=== PATIENT | male | born 1990 | race Caucasian/White ===

== ENCOUNTER 2018-12-31 17:10 | Inpatient (IN) ==
[2018-12-31] MEDS ORDERED: cefTRIAXone SODIUM 2,000 MG/70 ML BAG IV STA (18:30)
[2018-12-31 18:46] LABS: Basophils # (auto) 0.05 K/uL (0-0.2); Basophils % (auto) 0.6 %; Eosinophils # (auto) 0.09 K/uL (0-0.5); Eosinophils % (auto) 1.2 %; Immature Granulocytes # (auto) 0.03 K/uL (0.00-0.02); Immature Granulocytes % (auto) 0.4 %; Lymphocytes # (auto) 2.16 K/uL (1.2-3.4); Mean Corpuscular Hgb Conc 34.9 g/dL (32-36); Mean Corpuscular Volume 88.3 fL (80-100); Mean Platelet Volume 11.5 fL (7.4-10.4); Monocytes # (auto) 1.09 K/uL (0.11-0.59); Monocytes % (auto) 14.1 %; Neutrophils % (auto) 55.7 %; Platelet Count 188 K/uL (130-400); RDW Coefficient of Variation 13.8 % (11.5-14.5); RDW Standard Deviation 44.8 fL (36.4-46.3); Red Blood Count 4.87 M/uL (4.7-6.1); White Blood Count 7.72 K/uL (4.8-10.8)
[2018-12-31 19:02] LABS: Albumin Level 4.2 gm/dl (3.4-5.0); Calcium 8.9 mg/dl (8.5-10.1); Creatinine Clr Calc Pharmacy 143.8 ml/min; Est GFR (African American) 102.7; Est GFR (Non-African American) 88.6; Potassium 3.9 mmol/L (3.5-5.1)
[2018-12-31 19:05] LABS: Bilirubin,Total 0.6 mg/dl (0.2-1); Globulin 4.1 gm/dl (2.5-4.0); Total Protein 8.3 gm/dl (6.4-8.2)
--- NOTE | 2018-12-31 19:18 | XRay Report ---
LEFT FIRST TOE 3 VIEWS CLINICAL HISTORY: First toe pain. Infection. FINDINGS: 3 views of the left first toe are obtained. No prior studies are available for comparison a t the time of dictation. The skeletal structures are well mineralized. No fracture is seen. There is no bony erosion or periostitis. The first metatarsophalangeal and interphalangeal joints are preserve d. Soft tissue edema is noted in the first toe. No radiodense foreign body is identified in the first toe. Minimal subcutaneous gas is seen. A tiny foreign body is questioned between the second and thir d toes on the oblique view. IMPRESSION: 1. No acute bony abnormality is identified. 2. Soft tissue edema and trace subcutaneous gas is noted in the first toe. 3. Question a tiny foreign body between the second and third toes. Electronically signed by: Killian Magana M.D. 12/31/2018 7:17 PM
--- NOTE | 2018-12-31 21:15 | History & Physical Report ---
Date of Service December 31, 2018 Assessment & Plan (1) Lymphangitis: (2) Abscess or cellulitis of foot: Pt with hx left great toe callus presented to ER with progressive erythema and edema of L great toe with extension to L foot. Patient seen by podiatry-Dr. Alvarado on 12/03/2018 and had left great toe callus pared and was placed on Bactrim x7 days. Denies fever/chills, N/V L Toe Xray: No acute bony abnormality is identified. Soft tissue edema and trace subcutaneous gas is noted in the first toe. Question a tiny foreign body between the second and third toes. In ER pt afebrile, vitals stable, no leukocytosis. -In ER pt given Rocephin 2GM IV -Pending blood cultures (obtained after antibiotics given in ER) -Zosyn, clindamycin -Pending CT foot -Ortho consult secondary to gas noted on xray- answering service was contacted to make aware -Monitor CBC (3) Hypothyroidism: TSH: 8 in 01/07/18 -Continue levothyroxine -TSH in am (4) ADAMARIS (obstructive sleep apnea): -CPAP HS (5) Asthma: No acute exacerbation -Continue albuterol inhaler prn DVT Prophylaxis -Low risk, ambulate Follows with Dr Addison for routine care Pt was seen and care coordinated with Dr Dodge. See addendum History of Present Illness Chief Complaint: Left toe redness Primary Care Provider: Mark Addison MD Pt is 28 y/o M with PMH hypothyroidism, sleep apnea, asthma, allergic rhinitis presented to ER with complaint of left great toe redness. Patient reports history calluses to bilateral medial aspects of great toes and has followed up with podiatry intermittently over the past year and had callused areas areas pared down. Patient seen by podiatry-Dr. Alvarado on 12/03/2018 and had left great toe callus pared and was placed on Bactrim x7 days. Patient reports has had progressive erythema to left great toe which has extended to dorsal aspect of foot. Today noticed red streaking to left lower leg and area is tender. Patient reports is been applying triple antibiotic ointment to calluses daily and is unsure of any drainage from area. Denies any recent injury/trauma. Denies any fevers or chills, diaphoresis, N/V/D/C, NELSON, dizziness, syncope, vision changes, neck pain, CP, SOB, orthopnea, palpitations, cough, sore throat, choking, otalgia, rhinorrhea, abdominal pain, paresthesias, weakness, extremity weakness, extremity edema, other rashes, urinary symptoms. Allergies Allergy/AdvReac Type Severity Reaction Status Date / Time No Known Allergies Allergy Verified 12/31/18 19:46 Home Medications Home Medications Medication Instructions Recorded Confirmed Type acetaminophen 500 mg PO DIRECTED PRN 12/31/18 12/31/18 History albuterol sulfate 2 puff INHALATION Q6H PRN 12/31/18 12/31/18 History fluticasone propionate 2 spray INTRANASAL DAILY PRN 12/31/18 12/31/18 History levothyroxine 75 mcg PO QAM 12/31/18 12/31/18 History loratadine 10 mg PO DAILY PRN 12/31/18 12/31/18 History Past Med/Surg History Medical History History of tooth extraction (Resolved) Allergic rhinitis (Chronic) Asthma (Chronic) Hypothyroidism (Chronic) ADAMARIS (obstructive sleep apnea) (Chronic) Family History Father Coronary heart disease Hypertension Stroke Grandmother (Maternal) Diabetes Social History Preferred Language: Polish Communication Ability: Effective Clinical Trial Manager Required: No Beliefs That Will Affect Care: None Current Living Situation: Family Other Information That Helps Us Care for You: No Feels Safe at Home: Yes Safety Concerns: Feels Safe At This Time Smoking Status: Former smoker Tobacco Type: cigarettes and smokeless tobacco Do You Dip or Chew Tobacco: Yes Smoking End Date: 2014 Second Hand Exposure: No Tobacco Cessation Education Requested by Patient: No Hx Alcohol Use: Yes Alcohol type: beer and hard liquor Hx Substance Use: No Review of Systems Review of Systems: All systems reviewed & are unremarkable except as noted in HPI & below Physical Exam Physical Exam: General: no distress, obese Head: normocephalic, atraumatic Eyes: PERRL, EOM's intact, conjunctiva non-injected, anicteric ENT: normal inspection external ears, nose, mucous membranes moist Neck: supple, trachea midline Lungs: clear, no respiratory distress, no wheezing/rhonchi/rales CV: RRR, no murmur, no pretibial edema Abd: normal BS, soft, non-tender Ext: no cyanosis, no calf tenderness; L FOOT: Left great toe medial aspect with large callus without discharge, entire great toe with edema and erythema with erythema extending up dorsal foot and noted lymphangitis streaking to anterior left lower leg; distal pulses palpable, brisk capillary refill, sensation to light touch intact. Right medial aspect great toe with callus without surrounding erythema or edema. Neuro: A&O x 3, no focal deficits noted, normal affect Skin: warm, dry; +folliculitis to anterior thighs, Left foot as above Results & Data Vital Signs (Past 12 Hours) Vital Signs Temp Pulse Pulse Resp BP BP Pulse Ox 12/31/18 20:00 70 20 120/77 100 12/31/18 18:24 74 18 119/71 99 12/31/18 17:33 37 C 84 18 124/78 98 Laboratory Results Short CBC 12/31/18 Range/Units 18:39 WBC 7.72 (4.8-10.8) K/uL Hgb 15.0 (14.0-18.0) g/dL Hct 43.0 (42-52) % Plt Count 188 (130-400) K/uL BMP 12/31/18 18:39 Sodium 140 Potassium 3.9 Chloride 105 Carbon Dioxide 30 BUN 17 Creatinine 1.11 Glucose 70 Calcium 8.9 Liver Function 12/31/18 Range/Units 18:39 Total Bilirubin 0.6 (0.2-1) mg/dl AST 14 L (15-37) U/L ALT 33 (12-78) U/L Alkaline Phosphatase 84 (45-117) U/L Albumin 4.2 (3.4-5.0) gm/dl Diagnostic Findings Left Toe Xray: IMPRESSION: 1. No acute bony abnormality is identified. 2. Soft tissue edema and trace subcutaneous gas is noted in the first toe. 3. Question a tiny foreign body between the second and third toes. Supervising Physician Co-Signing Physician Notes Care coordinated with Janiya Green PA-C. Agree with able note. Patient seen and examined. Please refer to her notes for full details. Vital signs reviewed. Physical exam: General exam: Alert and oriented. Not in acute distress. CVS: S1 and S2 heard, regular rate and rhythm, no murmurs. RS: Clear to auscultation, no wheezing or crackles. ABD: Soft, bowel sounds present, nontender, no distention. CIRCULATION MAN: Nonfocal. EXT: Left big toe callus on medial aspect erythematos -erythema extending upto the ankle Labs: Reviewed. Assessment and plan: Left big toe callus infection and cellulitis xray showed subcutaneous gas ct scan unremarkable on iv zosyn and clindamycin ortho consulted ADAMARIS cpap Other diagnosis and plan of care as per Janiya Green PA-C. Landen andrade MD.
[2018-12-31] MEDS ORDERED: IOVERSOL 100ml IV PRN (21:55)
[2018-12-31] MEDS ORDERED: TRAMADOL HCL 50 MG TABLET PO PRN (22:17)
[2018-12-31] MEDS ORDERED: LORATADINE 10 MG TAB PO PRN (22:17)
[2018-12-31] MEDS ORDERED: FLUTICASONE PROPIONATE NA SPR 16 GM BTL NAE PRN (22:17)
[2018-12-31] MEDS ORDERED: SODIUM CHLORIDE 0.9% 1000ML 1,000 ML IV SCH (22:17)
[2018-12-31] MEDS ORDERED: ONDANSETRON INJ 2 MG/ML 2 ML VIAL IV PRN (22:17)
[2018-12-31] MEDS ORDERED: ACETAMINOPHEN 325 MG TAB PO PRN (22:17)
[2018-12-31] MEDS ORDERED: PIPERACILL/TAZOBAC CONSULT ACTIVE PRN (22:26)
--- NOTE | 2018-12-31 22:29 | CT Scan Report ---
CT SCAN OF THE LEFT FOOT WITH IV CONTRAST CLINICAL HISTORY: First toe infection. COMPARISON STUDY: Radiographs of the left first toe dated 12/31/2018. TECHNIQUE: Following the IV administration of 94 cc of Optiray 320, CT scan of the left foot is perfo rmed from the ankle to the base of the foot. Images are reviewed in the axial, sagittal, and coronal planes. IV contrast was administered without complication. A dose lowering technique was utilized adh ering to the principles of ALARA. CT DOSE: 229.22 mGy.cm The skeletal structures are well mineralized. No fracture is seen. There is no bony erosion or perios titis. A small bone island is incidentally noted in the navicular. The joint spaces of the foot are m aintained. There are dorsal and plantar calcaneal enthesophytes. An os trigonum is incidentally noted . The ankle joint is maintained. No osteochondral defect is seen in the talar dome. There is soft tis loyda edema identified in the forefoot, greatest in the first toe. There is a wound along the plantar/m edial aspect of the first toe at the level of the interphalangeal joint. Superficial and deep soft ti ssue edema in the first toe are consistent with cellulitis. Small foci of subcutaneous gas are identi fied. No organized fluid collection is identified. No foreign body is seen. IMPRESSION: 1. No acute bony abnormality is identified. Specifically, there is no CT evidence of osteomyelitis as clinically queried. 2. Soft tissue edema, a wound, and cellulitis are noted in the first toe. 3. Dorsal and plantar heel spurs. Electronically signed by: Killian Magana M.D. 12/31/2018 10:28 PM
[2018-12-31] MEDS ORDERED: PIPERACILLIN/TAZOBACTAM 4.5 GM in DEXTROSE 5% 100 ML IV ONE (22:30)
[2018-12-31] MEDS: CLINDAMYCIN 600 MG in DEXTROSE 5% 50 ML IV SCH (23:05)
--- NOTE | 2018-12-31 23:46 | Emergency Department Note ---
Entered by Ana Paula Blankenship acting as a scribe for Fabian Lassiter DO History of Present Illness General Chief complaint: Toe Injury/Pain Stated complaint: LEFT FOOT, BIG TOE SORE Source: patient History of Present Illness Provider complaint: toe pain Onset (ago): day(s) (several days) Location: foot (toe) and left Radiation: proximal Pain Consistency: + other (worsening) Maximum Pain Intensity: 3 Associated symptoms: no fever/chills and no nausea/vomiting The patient is a 28 year old male who presents to the Emergency Room with complaints of worsening left big toe pain. The patient states that he calluses on his left big toe for several years, but the pain and size has gotten worse in the past several days. He notes that the pain has been radiating up his foot. He states that he went to the machine stoppage frequency checker a month ago who prescribed his antibiotics which he finished 2 weeks ago. The patient denies any fever, chills, nausea, or vomiting. He states that he has a history of hypothyroidism and cellulitis. No other exacerbating or remitting factors. Home Medications Home Medications Medication Instructions Recorded Confirmed Type acetaminophen 500 mg PO DIRECTED PRN 12/31/18 12/31/18 History albuterol sulfate 2 puff INHALATION Q6H PRN 12/31/18 12/31/18 History fluticasone propionate 2 spray INTRANASAL DAILY PRN 12/31/18 12/31/18 History levothyroxine 75 mcg PO QAM 12/31/18 12/31/18 History loratadine 10 mg PO DAILY PRN 12/31/18 12/31/18 History Allergies Allergy/AdvReac Type Severity Reaction Status Date / Time No Known Allergies Allergy Verified 12/31/18 19:46 Past Med/Surg History Medical History History of tooth extraction (Resolved) Allergic rhinitis (Chronic) Asthma (Chronic) Hypothyroidism (Chronic) ADAMARIS (obstructive sleep apnea) (Chronic) Family History Father Coronary heart disease Hypertension Stroke Grandmother (Maternal) Diabetes Social History Preferred Language: Kiswahili Communication Ability: Effective Floating Labor Gang Supervisor Required: No Beliefs That Will Affect Care: None Current Living Situation: Family Other Information That Helps Us Care for You: No Feels Safe at Home: Yes Safety Concerns: Feels Safe At This Time Smoking Status: Former smoker Tobacco Type: cigarettes and smokeless tobacco Do You Dip or Chew Tobacco: Yes Smoking End Date: 2014 Second Hand Exposure: No Tobacco Cessation Education Requested by Patient: No Hx Alcohol Use: Yes Alcohol type: beer and hard liquor Hx Substance Use: No Review of Systems See HPI for pertinent positives & negatives. and A total of 10 systems reviewed and were otherwise negative Physical Exam Vital Signs Vital Signs - 24 hr 12/31/18 17:33 12/31/18 18:24 12/31/18 20:00 Temperature 37 C Temperature Source Oral Sepsis Recent Fever Within 48 Hours No Sepsis New/Unexplained Change in Mental Status No Sepsis Action Taken by Nursing No Action Required Pulse Rate 84 Pulse Rate [Finger] 74 70 Pulse Rhythm Regular Pulse Strength Normal Respiratory Rate 18 18 20 Respiratory Effort / Characteristics Non-Labored Spontaneous Respiratory Depth Normal Respiratory Pattern Regular Blood Pressure 124/78 Blood Pressure [Right Arm] 119/71 120/77 Blood Pressure Mean 93 Blood Pressure Mean [Right Arm] 87 91 Blood Pressure Position Sitting Pulse Oximetry 98 99 100 Oxygen Delivery Method Room Air Room Air Room Air GENERAL: alert, well appearing, talking in full sentences, obese, no distress, non-toxic EYE EXAM: normal conjunctiva OROPHARYNX: no exudate, no erythema, lips, buccal mucosa, and tongue normal and mucous membranes are moist NECK: supple, no nuchal rigidity, no adenopathy, non-tender LUNGS: Clear to auscultation. Normal chest wall mechanics HEART: no murmurs, S1 normal and S2 normal ABDOMEN: abdomen soft, non-tender, normo-active bowel sounds, no masses, no rebound or guarding. BACK: Back is symmetrical on inspection and there is no deformity, no midline tenderness, no CVA tenderness. SKIN: no rashes and no bruising, first left toe 4 by 3 cm ulcer/callus, 1.5 by 2.5 ulcer/callus to lateral plantar surface, erythema and streaking up left lower extremity UPPER EXTREMITIES: upper extremities are grossly normal. LOWER EXTREMITIES: No pitting edema. NEURO EXAM: Normal sensorium, cranial nerves II-XII grossly intact, normal speech, no gross weakness of arms, no gross weakness of legs. Course 1824: The patient was evaluated in room B11B, and a complete history and physical examination were performed. 2025: I discussed the patient's case with Janiya Restrepo, Dr. Kaitlynn Restrepo Hospitalist will accept the patient for further evaluation. Consultations Consultation #1: Janiya Restrepo Hospitalist Time: 20:26 Administered Medications Clindamycin Phosphate 600 mg/ (Dextrose) 54 mls @ 100 mls/hr IV Q8H THEE Stop: 01/10/19 22:59 Last Admin: 12/31/18 23:05 Dose: 100 mls/hr Documented by: [id number] Sodium Chloride (Nss 1000ml) 1,000 mls @ 125 mls/hr IV .Q8H THEE Stop: 01/01/19 06:16 Last Admin: 12/31/18 23:05 Dose: 125 mls/hr Documented by: [id number] Ioversol (Optiray 320 100ml) 94 ml IV ONCE PRN PRN Reason: Interaction Checking Stop: 01/04/19 21:54 Last Admin: 12/31/18 21:56 Dose: 94 ml Documented by: [id number] Discontinued Medications Ceftriaxone Sodium (Rocephin) 2,000 mg in 70 mls @ 140 mls/hr IV NOW STA Stop: 12/31/18 18:59 Last Infusion: 12/31/18 19:56 Dose: 0 mls/hr Documented by: [id number] Admin: 12/31/18 19:05 Dose: 140 mls/hr Documented by: [id number] Piperacillin Sod/Tazobactam (Sod 4.5 gm/ Dextrose) 120 mls @ 200 mls/hr IV 2230 ONE; Protocol Stop: 12/31/18 23:05 Last Admin: 12/31/18 23:06 Dose: 200 mls/hr Documented by: [id number] Medical Decision Making Differential Diagnosis Differential diagnosis includes etiologies such as cellulitis, abscess, MRSA infection, DVT, necrotizing fasciitis, dermatitis, drug eruption, as well as o thers were entertained. Medical Records Attestation: I reviewed the patient's medical records. Home Medications Current Medication List: was personally reviewed by me Laboratory Data Attestation: I reviewed the patient's lab results. Result diagrams: 12/31/18 18:39 12/31/18 18:39 Lab Results 12/31/18 12/31/18 Range/Units 18:39 18:39 WBC 7.72 (4.8-10.8) K/uL RBC 4.87 (4.7-6.1) M/uL Hgb 15.0 (14.0-18.0) g/dL Hct 43.0 (42-52) % MCV 88.3 (80-100) fL MCH 30.8 (25-34) pg MCHC 34.9 (32-36) g/dL RDW Std Deviation 44.8 (36.4-46.3) fL RDW Coeff of Jannette 13.8 (11.5-14.5) % Plt Count 188 (130-400) K/uL MPV 11.5 H (7.4-10.4) fL Immature Gran % (Auto) 0.4 % Neut % (Auto) 55.7 % Lymph % (Auto) 28.0 % [place] % (Auto) 14.1 % Eos % (Auto) 1.2 % Baso % (Auto) 0.6 % Immature Gran # (Auto) 0.03 H (0.00-0.02) K/uL Neut # (Auto) 4.30 (1.4-6.5) K/uL Lymph # (Auto) 2.16 (1.2-3.4) K/uL [place] # (Auto) 1.09 H (0.11-0.59) K/uL Eos # (Auto) 0.09 (0-0.5) K/uL Baso # (Auto) 0.05 (0-0.2) K/uL Sodium 140 (136-145) mmol/L Potassium 3.9 (3.5-5.1) mmol/L Chloride 105 (98-107) mmol/L Carbon Dioxide 30 (21-32) mmol/L Anion Gap 5.0 (3-11) BUN 17 (7-18) mg/dl Creatinine 1.11 (0.6-1.4) mg/dl Est Cr Clr Drug Dosing 143.8 ml/min Est GFR ( Amer) 102.7 Est GFR (Non-Af Amer) 88.6 BUN/Creatinine Ratio 15.0 (10-20) Glucose 70 (70-99) mg/dl Calcium 8.9 (8.5-10.1) mg/dl Total Bilirubin 0.6 (0.2-1) mg/dl AST 14 L (15-37) U/L ALT 33 (12-78) U/L Alkaline Phosphatase 84 (45-117) U/L Total Protein 8.3 H (6.4-8.2) gm/dl Albumin 4.2 (3.4-5.0) gm/dl Globulin 4.1 H (2.5-4.0) gm/dl Albumin/Globulin Ratio 1.0 (0.9-2) Imaging Data Radiologist's Impression: Radiology results as stated below per my review and the radiologist's interpretation: LEFT FIRST TOE 3 VIEWS CLINICAL HISTORY: First toe pain. Infection. FINDINGS: 3 views of the left first toe are obtained. No prior studies are available for comparison at the time of dictation. The skeletal structures are well mineralized. No fracture is seen. There is no bony erosion or periostitis. The first metatarsophalangeal and interphalangeal joints are preserved. Soft tissue edema is noted in the first toe. No radiodense foreign body is identified in the first toe. Minimal subcutaneous gas is seen. A tiny foreign body is questioned between the second and third toes on the oblique view. IMPRESSION: 1. No acute bony abnormality is identified. 2. Soft tissue edema and trace subcutaneous gas is noted in the first toe. 3. Question a tiny foreign body between the second and third toes. Electronically signed by: Killian Magana M.D. 12/31/2018 7:17 PM Blood Pressure Blood Pressure Findings: Normal blood pressure Blood Pressure Disposition: did not require urgent referral MDM Narrative Patient is a 28-year-old male with no significant past medical history with exception of asthma and hypothyroidism that presents the ER for infection of his left first toe. He has lymphangitic spreading streaking up his leg. IV was established and blood work was obtained. Labs show no significant leukocytosis or anemia. BMP along with LFTs bilirubin was unremarkable. Patient was given 2 g IV Rocephin. X-rays show small gas bubbles. With the lymphangitic spreading and the extent/skin breakdown along with small amount of air bubbles did discuss with the hospitalist and update the patient at bedside. Patient was admitted for cellulitis with failure of outpatient treatment as he had been on anti biotics previously with no improvement. Discussed with Pt concerning signs and symptoms to watch out for. Pt was instructed to follow up with their PCP and discussed with the patient their option to return to the ED at anytime for persistent or worsening symptoms. The appropriate anticipatory guidance and out- patient management, including indications for return to the emergency department, were explained at length to the patient and understood. Impression & Plan Abscess or cellulitis of foot Discharge Plan Visit Data *Final* Discharge Date/Time: 12/31/18 21:41 Chief Complaint: Toe Injury/Pain Stated Complaint: LEFT FOOT, BIG TOE SORE ED Provider: Fabian Lassiter Discharge Problem: Abscess or cellulitis of foot Patient Disposition: Admitted As Inpatient Discharge Instructions Interventions: ED Discharge Assessment Last Done: 12/31/18 21:41 The scribe's documentation has been prepared under my direction and personally reviewed by me in its entirety. I confirm that the note above accurately r eflects all work, treatment, procedures, and medical decision making performed by me.
[2019-01-01] MEDS: PIPERACILLIN/TAZOBACTAM 4.5 GM in DEXTROSE 5% 100 ML IV SCH ×3 (04:07→20:51)
[2019-01-01] MEDS: LEVOTHYROXINE SODIUM 75 MCG TABLET PO SCH (06:28)
[2019-01-01] MEDS: CLINDAMYCIN 600 MG in DEXTROSE 5% 50 ML IV SCH (06:28)
[2019-01-01 06:56] LABS: Hemoglobin 14.2 g/dL (14.0-18.0); Mean Corpuscular Hgb Conc 33.8 g/dL (32-36); Mean Corpuscular Volume 90.3 fL (80-100); Mean Platelet Volume 11.8 fL (7.4-10.4); Platelet Count 173 K/uL (130-400); RDW Coefficient of Variation 14.1 % (11.5-14.5); RDW Standard Deviation 46.4 fL (36.4-46.3); Red Blood Count 4.65 M/uL (4.7-6.1); White Blood Count 6.07 K/uL (4.8-10.8)
[2019-01-01 07:30] LABS: BUN Creatinine Ratio 15.4 (10-20); Calcium 8.5 mg/dl (8.5-10.1); Est GFR (African American) 108.6; Est GFR (Non-African American) 93.7
--- NOTE | 2019-01-01 11:28 | Orthopedic Consultation ---
Date of Consultation January 01, 2019 Assessment & Plan (1) Cellulitis of great toe, left: Continue current IV antibiotics at this time. Patient states that he does note that his original erythema is resolving. CT results as noted above with no evidence of osteomyelitis. There is a chance that he may need the wound toe debrided as well as the callus on the medial aspect of the great toe. I will discuss the case with Dr. Meyer and have him examine the toe. Patient has eaten today and if anything surgical in nature needs to be taken care of will likely be over the weekend. History of Present Illness Reason for Consultation: Left great toe cellulitis with medial callus formation and open wound on plantar surface of toe Attending Physician: Caitlyn Small MD History of Present Illness Patient is a 28-year-old white male who states that on the of this month he had gone to his acid tank cleaner who had pared down his callus on the left great toe that resides at the medial aspect. At that time, he states that his toe was somewhat red and he was started on Bactrim per his acid tank cleaner. He states that the redness continued to get worse and started climb up to the ankle and lower portion of his leg. At that time he decided to come into the emergency room to be evaluated. He was noted to have a cellulitis and was for further care. We have been asked to see him for his toe ulceration/infection. Patient states that he has had chronic callus formations on both great toes in the same spot due to his anatomy and how he walks. He denies any fevers, chills, nausea or vomiting at home. He states that he has not had that much in the way of pain with this infection. Allergies Allergy/AdvReac Type Severity Reaction Status Date / Time No Known Allergies Allergy Verified 12/31/18 19:46 Home Medications Home Medications Medication Instructions Recorded Confirmed Type acetaminophen 500 mg PO DIRECTED PRN 12/31/18 12/31/18 History albuterol sulfate 2 puff INHALATION Q6H PRN 12/31/18 12/31/18 History fluticasone propionate 2 spray INTRANASAL DAILY PRN 12/31/18 12/31/18 History levothyroxine 75 mcg PO QAM 12/31/18 12/31/18 History loratadine 10 mg PO DAILY PRN 12/31/18 12/31/18 History Patient History Medical History History of tooth extraction (Resolved) Allergic rhinitis (Chronic) Asthma (Chronic) Hypothyroidism (Chronic) ADAMARIS (obstructive sleep apnea) (Chronic) Family History Father Coronary heart disease Hypertension Stroke Grandmother (Maternal) Diabetes Social History Preferred Language: Romanian Communication Ability: Effective Loan Expeditor Required: No Beliefs That Will Affect Care: None Current Living Situation: Family Other Information That Helps Us Care for You: No Feels Safe at Home: Yes Safety Concerns: Feels Safe At This Time Smoking Status: Former smoker Tobacco Type: cigarettes and smokeless tobacco Do You Dip or Chew Tobacco: Yes Smoking End Date: 2014 Second Hand Exposure: No Tobacco Cessation Education Requested by Patient: No Hx Alcohol Use: Yes Alcohol type: beer and hard liquor Hx Substance Use: No Physical Exam Physical Exam: On examination of his left great toe, it is noted he has a darkened erythema of most of the toe itself that travels proximally to the MTP joint and slightly into the dorsum of the foot. He has no erythema around the ankle and has only a slight red streak up the leg at this time. He has a noted callus on the medial aspect of his great toe that is erythematous around the edges. Wound on the plantar surface of the great toe that has some eschar noted but no gross purulence that is draining. There is also a very small area between the first and second toes that appears to have been open at one point. He denies any decreased sensation. Range of motion does not appear to be affected. Results & Data Diagnostic Findings LEFT FIRST TOE 3 VIEWS CLINICAL HISTORY: First toe pain. Infection. FINDINGS: 3 views of the left first toe are obtained. No prior studies are available for comparison at the time of dictation. The skeletal structures are well mineralized. No fracture is seen. There is no bony erosion or periostitis. The first metatarsophalangeal and interphalangeal joints are preserved. Soft tissue edema is noted in the first toe. No radiodense foreign body is identified in the first toe. Minimal subcutaneous gas is seen. A tiny foreign body is questioned between the second and third toes on the oblique view. IMPRESSION: 1. No acute bony abnormality is identified. 2. Soft tissue edema and trace subcutaneous gas is noted in the first toe. 3. Question a tiny foreign body between the second and third toes. CT SCAN OF THE LEFT FOOT WITH IV CONTRAST CLINICAL HISTORY: First toe infection. COMPARISON STUDY: Radiographs of the left first toe dated 12/31/2018. TECHNIQUE: Following the IV administration of 94 cc of Optiray 320, CT scan of the left foot is performed from the ankle to the base of the foot. Images are reviewed in the axial, sagittal, and coronal planes. IV contrast was administered without complication. A dose lowering technique was utilized adhering to the principles of ALARA. CT DOSE: 229.22 mGy.cm The skeletal structures are well mineralized. No fracture is seen. There is no bony erosion or periostitis. A small bone island is incidentally noted in the navicular. The joint spaces of the foot are maintained. There are dorsal and plantar calcaneal enthesophytes. An os trigonum is incidentally noted. The ankle joint is maintained. No osteochondral defect is seen in the talar dome. There is soft tissue edema identified in the forefoot, greatest in the first toe. There is a wound along the plantar/medial aspect of the first toe at the level of the interphalangeal joint. Superficial and deep soft tissue edema in the first toe are consistent with cellulitis. Small foci of subcutaneous gas are identified. No organized fluid collection is identified. No foreign body is seen. IMPRESSION: 1. No acute bony abnormality is identified. Specifically, there is no CT evidence of osteomyelitis as clinically queried. 2. Soft tissue edema, a wound, and cellulitis are noted in the first toe. 3. Dorsal and plantar heel spurs.
--- NOTE | 2019-01-01 16:59 | Hospitalist Progress Note ---
Date of Service January 01, 2019 Assessment & Plan (1) Abscess or cellulitis of foot: Patient reports of having recurrent callus on bilateral great toes since childhood, had numerous infection as in past Had a recent left great toe callus surgery done by podiatry Dr. Knott on 08/05/2018 Patient was placed on Bactrim p.o. for 7 days Left great toe surgical area did not heal, continued to swell, having active drainage, noted to have redness swelling extending to left forefoot to more part of the ankle Patient did not had any fever or chills L Toe Xray: No acute bony abnormality is identified. Soft tissue edema and trace subcutaneous gas is noted in the first toe. Question a tiny foreign body between the second and third toes. In ER pt afebrile, vitals stable, no leukocytosis. -CT of left foot: Shows no acute abnormality, no evidence of osteomyelitis Antibiotic adjusted to IV Zosyn, Orthopedics consulted, appreciate input Recommend continue on IV antibiotic, May need a debridement of the necrotic, black eschar and tissues (2) Hypothyroidism: -Continue levothyroxine (3) ADAMARIS (obstructive sleep apnea): -CPAP HS (4) Asthma: No acute exacerbation -Continue albuterol inhaler prn DVT Prophylaxis -Low risk, ambulate Follows with Dr Addison for routine care Disposition: Expected to be discharged home when medically stable Subjective Left great toe still erythematous, improved of redness and swelling of left foot, has minimum pain no fever or chills Physical Exam Constitutional: WD/WN, vitals as above no acute distress Eyes: PERRL, conjunctivae normal, anicteric sclerae ENMT: external ear and nose normal, oropharynx normal Neck: trachea midline, no thyromegaly Respiratory: normal respiratory effort, lungs clear to auscultation Cardiovascular: RRR, no murmur, no edema Gastrointestinal (Abdomen): normal bowel sounds, soft, nontender, no hepatosplenomegaly Musculoskeletal: Left great toe medial aspect large area of infected nelson tissue with surrounding erythema, black and necrotic area noted on the lower lateral side Large callus on right great toe Neurologic: PERRL, EOMI, accommodation nl, no face palsy, no dysarthria Psychiatric: A+Ox3, euthymic affect Results & Data Vital Signs (Past 12 Hours) Vital Signs Temp Pulse Resp BP Pulse Ox 01/01/19 14:59 36.7 C 61 17 122/73 96 (1) Hypothyroidism Hypothyroidism type: unspecified Qualified Code(s): E03.9 - Hypothyroidism, unspecified (2) Asthma Asthma persistence: unspecified Asthma complication type: unspecified
[2019-01-02] MEDS: LEVOTHYROXINE SODIUM 75 MCG TABLET PO SCH (06:25)
[2019-01-02 08:19] LABS: Creatinine Clr Calc Pharmacy 145.9 ml/min; Est GFR (Non-African American) 90.6
[2019-01-02] MEDS: PIPERACILLIN/TAZOBACTAM 4.5 GM in DEXTROSE 5% 100 ML IV SCH ×3 (08:35→23:20)
[2019-01-02] MEDS: ALBUTEROL HFA 8 GM INHALER INH PRN (11:19)
--- NOTE | 2019-01-02 12:02 | Orthopedic Progress Note ---
Date of Service January 02, 2019 Assessment & Plan (1) Cellulitis of great toe, left: Continue current IV antibiotics at this time. CT results as noted above with no evidence of osteomyelitis. The calluses on the left great toe will probably need to be debrided and any ulcerations may need to be treated outpatient for wound healing, potentially with wound clinic. Will discuss with Dr. Meyer for possible bedside callus debridement vs. follow up outpatient for debridement. Subjective No pain in the left great toe. Generally, feeling much better. States the redness of the great toe has decreased significantly. No new complaints. Physical Exam Constitutional: WD/WN, vitals as above Musculoskeletal: Left great toe: minimal erythema. Stable callused area at the medial great toe near the IP joint and plantar to lateral aspect of the great toe at the level of the proximal phalanx/IP joint. No pain elicited with PROM of the great toe MTP or IP joint. NV intact. Psychiatric: A+Ox3, euthymic affect
--- NOTE | 2019-01-02 17:40 | Hospitalist Progress Note ---
Date of Service January 02, 2019 Assessment & Plan (1) Abscess or cellulitis of foot: Cellulitis of left food continues to improve with IV antibiotic Patient reports of having recurrent callus on bilateral great toes since childhood, had numerous infection as in past Had a recent left great toe callus surgery done by podiatry Dr. Knott on 08/05/2018 Patient was placed on Bactrim p.o. for 7 days Left great toe surgical area did not heal, continued to swell, having active drainage, noted to have redness swelling extending to left forefoot to more part of the ankle Patient did not had any fever or chills L Toe Xray: No acute bony abnormality is identified. Soft tissue edema and trace subcutaneous gas is noted in the first toe. Question a tiny foreign body between the second and third toes. In ER pt afebrile, vitals stable, no leukocytosis. -CT of left foot: Shows no acute abnormality, no evidence of osteomyelitis Antibiotic adjusted to IV Zosyn, Orthopedics consulted, appreciate input Recommend continue on IV antibiotic, May need a debridement of the necrotic, black eschar and tissues (2) Hypothyroidism: -Continue levothyroxine (3) ADAMARIS (obstructive sleep apnea): -CPAP HS (4) Asthma: No acute exacerbation -Continue albuterol inhaler prn DVT Prophylaxis -Low risk, ambulate Follows with Dr Addison for routine care Disposition: Expected to be discharged home when medically stable Subjective Swelling and redness of left great toe, and left foot has markedly improved Fever or chills No other complaint Physical Exam Constitutional: WD/WN, vitals as above no acute distress Eyes: PERRL, conjunctivae normal, anicteric sclerae ENMT: external ear and nose normal, oropharynx normal Neck: trachea midline, no thyromegaly Respiratory: normal respiratory effort, lungs clear to auscultation Cardiovascular: RRR, no murmur, no edema Gastrointestinal (Abdomen): normal bowel sounds, soft, nontender, no hepatosplenomegaly Neurologic: PERRL, EOMI, accommodation nl, no face palsy, no dysarthria Psychiatric: A+Ox3, euthymic affect Results & Data Vital Signs (Past 12 Hours) Vital Signs Temp Pulse Resp BP Pulse Ox 01/02/19 15:38 36.6 C 66 20 111/66 96 01/02/19 08:00 36.6 C 69 16 128/78 95 (1) Hypothyroidism Hypothyroidism type: unspecified Qualified Code(s): E03.9 - Hypothyroidism, unspecified (2) Asthma Asthma complication type: unspecified Asthma persistence: unspecified
[2019-01-03] MEDS: LEVOTHYROXINE SODIUM 75 MCG TABLET PO SCH (05:42)
[2019-01-03 06:48] LABS: Creatinine Clr Calc Pharmacy 129.3 ml/min; Est GFR (African American) 90.7; Est GFR (Non-African American) 78.3
[2019-01-03] MEDS: PIPERACILLIN/TAZOBACTAM 4.5 GM in DEXTROSE 5% 100 ML IV SCH ×2 (08:03→15:50)
--- NOTE | 2019-01-03 09:54 | Orthopedic Progress Note ---
Date of Service January 03, 2019 Assessment & Plan (1) Cellulitis of great toe, left: Continue current IV antibiotics at this time. CT results as noted above with no evidence of osteomyelitis. After debridement, the ulcerated areas were dressed with adaptic, gauze, and kerlix wrap. Daily dressing changes. Consulted wound nursing for wound dressing recommendations, possible Aquacel. Patient may benefit from wound clinic upon d/c because callus may need to be debrided as time goes by. If antibiotic choice has been made for home PO antibiotics, patient is stable to be discharged and may follow up with Dr. Meyer clinic in 7-10 days. Subjective Swelling and redness of left great toe, and left foot has markedly improved Fever or chills No other complaint Physical Exam Constitutional: WD/WN, vitals as above Musculoskeletal: Left great toe: minimal erythema. Still slightly malodorous. After betadine prep x 2, the callus of the great toe was debrided using a 15 blade. There was two small shallow ulcerated areas at the medial and lateral plantar aspect of the toe. No erythema. No fluctuance. No purulence. Psychiatric: A+Ox3, euthymic affect Results & Data Vital Signs (Past 12 Hours) Vital Signs Temp Pulse Resp BP Pulse Ox 01/03/19 08:07 36.7 C 67 16 117/70 96 01/02/19 23:29 36.7 C 57 L 16 108/63 95
[2019-01-03] MEDS: ALBUTEROL HFA 8 GM INHALER INH PRN ×2 (11:43→16:37)
--- NOTE | 2019-01-03 17:22 | Hospitalist Progress Note ---
Date of Service January 03, 2019 Assessment & Plan (1) Abscess or cellulitis of foot: Cellulitis of left food continues to improve with IV antibiotic Patient reports of having recurrent callus on bilateral great toes since childhood, had numerous infection as in past Had a recent left great toe callus surgery done by podiatry Dr. Knott on 08/05/2018 Patient was placed on Bactrim p.o. for 7 days Left great toe surgical area did not heal, continued to swell, having active drainage, noted to have redness swelling extending to left forefoot to more part of the ankle Patient did not had any fever or chills L Toe Xray: No acute bony abnormality is identified. Soft tissue edema and trace subcutaneous gas is noted in the first toe. Question a tiny foreign body between the second and third toes. In ER pt afebrile, vitals stable, no leukocytosis. -CT of left foot: Shows no acute abnormality, no evidence of osteomyelitis Antibiotic adjusted to IV Zosyn, Orthopedics consulted, appreciate input Status post debridement of left great toe nonhealing wound today, the ulcerated areas were dressed with adaptic, gauze, and kerlix wrap. Orthopedic recommendation: Daily dressing change . Consulted wound nursing for wound dressing recommendations, possible Aquacel. Patient will need follow-up at wound clinic upon d/c because callus may need to be debrided as time goes by. follow up with Dr. Meyer clinic in 7-10 days. Antibiotic changed to p.o. Augmentin, needs total 10 days of treatment (2) Hypothyroidism: -Continue levothyroxine (3) ADAMARIS (obstructive sleep apnea): -CPAP HS (4) Asthma: No acute exacerbation -Continue albuterol inhaler prn DVT Prophylaxis -Low risk, ambulate Follows with Dr Addison for routine care Disposition: Expected to be discharged home possible tomorrow Subjective This post debridement of left great toe today Pain or discomfort, swelling erythema on left great toe and left foot markedly improved Does not have any fever or chills Physical Exam Constitutional: WD/WN, vitals as above no acute distress Eyes: PERRL, conjunctivae normal, anicteric sclerae ENMT: external ear and nose normal, oropharynx normal Neck: trachea midline, no thyromegaly Respiratory: normal respiratory effort, lungs clear to auscultation Cardiovascular: RRR, no murmur, no edema Gastrointestinal (Abdomen): normal bowel sounds, soft, nontender, no hepatosplenomegaly Musculoskeletal: Left great toe, cellulitis, nonhealing wound, status post debridement, bandaged Neurologic: PERRL, EOMI, accommodation nl, no face palsy, no dysarthria Psychiatric: A+Ox3, euthymic affect Results & Data Vital Signs (Past 12 Hours) Vital Signs Temp Pulse Resp BP Pulse Ox 01/03/19 15:22 36.8 C 60 20 127/76 95 01/03/19 08:07 36.7 C 67 16 117/70 96 (1) Hypothyroidism Hypothyroidism type: unspecified Qualified Code(s): E03.9 - Hypothyroidism, unspecified (2) Asthma Asthma complication type: unspecified Asthma persistence: unspecified
[2019-01-03] MEDS ORDERED: AMOXICILLIN/CLAVULANATE 875 MG TAB PO SCH (21:00)
[2019-01-04] MEDS: LEVOTHYROXINE SODIUM 75 MCG TABLET PO SCH (06:26)
[2019-01-04] MEDS ORDERED: AMOXICILLIN/CLAVULANATE 875 MG TAB PO SCH (08:00)
--- NOTE | 2019-01-04 18:00 | Discharge Summary ---
Date of Service January 04, 2019 Admission HPI Per Admitting Provider Pt is 28 y/o M with PMH hypothyroidism, sleep apnea, asthma, allergic rhinitis presented to ER with complaint of left great toe redness. Patient reports history calluses to bilateral medial aspects of great toes and has followed up with podiatry intermittently over the past year and had callused areas areas pared down. Patient seen by podiatry-Dr. Alvarado on 12/03/2018 and had left great toe callus pared and was placed on Bactrim x7 days. Patient reports has had progressive erythema to left great toe which has extended to dorsal aspect of foot. Today noticed red streaking to left lower leg and area is tender. Deric gutierrez reports is been applying triple antibiotic ointment to calluses daily and is unsure of any drainage from area. Denies any recent injury/trauma. Denies any fevers or chills, diaphoresis, N/V/D/C, NELSON, dizziness, syncope, vision changes, neck pain, CP, SOB, orthopnea, palpitations, cough, sore throat, choking, otalgia, rhinorrhea, abdominal pain, paresthesias, weakness, extremity weakness, extremity edema, other rashes, urinary symptoms. Principal Diagnosis Left great toe nonhealing wound/left foot cellulitisresolved Discharge Exam Constitutional WD/WN, vitals as above no acute distress Eyes PERRL, conjunctivae normal, anicteric sclerae ENMT external ear and nose normal, oropharynx normal Neck trachea midline, no thyromegaly Respiratory normal respiratory effort, lungs clear to auscultation Cardiovascular RRR, no murmur, no edema Gastrointestinal (Abdomen) normal bowel sounds, soft, nontender, no hepatosplenomegaly Musculoskeletal Left great toe nonhealing wound, status post I&D, bandage present Improvement of erythema on left foot Skin No erythema noted on left foot Neurologic PERRL, EOMI, accommodation nl, no face palsy, no dysarthria Psychiatric A+Ox3, euthymic affect Discharge Data Allergies Allergy/AdvReac Type Severity Reaction Status Date / Time No Known Allergies Allergy Verified 12/31/18 19:46 Consultations 12/31/18 22:17 Consult Orthopedic Surgery Routine Ordered Studies 12/31/18 21:18 CT foot LT w con Urgent Hospital Course (1) Abscess or cellulitis of foot: With cellulitis of left foot, due to nonhealing wound on the left great toe, after callus removal with podiatry Symptom resolved with IV antibiotic, Left foot swelling erythema resolved, no fever: Has no pain or discomfort Able to change to p.o. Augmentin, total 10 days of Patient reports of having recurrent callus on bilateral great toes since childhood, had numerous infection as in past Had a recent left great toe callus surgery done by podiatry Dr. Knott on 08/05/2018 Patient was placed on Bactrim p.o. for 7 days Left great toe surgical area did not heal, continued to swell, having active drainage, noted to have redness swelling extending to left forefoot to more part of the ankle Patient did not had any fever or chills L Toe Xray: No acute bony abnormality is identified. Soft tissue edema and trace subcutaneous gas is noted in the first toe. Question a tiny foreign body between the second and third toes. In ER pt afebrile, vitals stable, no leukocytosis. -CT of left foot: Shows no acute abnormality, no evidence of osteomyelitis Treated with IV Zosyn Orthopedics consulted, appreciate input Status post debridement of left great toe nonhealing wound today, the ulcerated areas were dressed with adaptic, gauze, and kerlix wrap. Orthopedic recommendation: Daily dressing change . Consulted wound nursing for wound dressing recommendations, possible Aquacel. Patient will need follow-up at wound clinic upon d/c because callus may need repeat debrided follow up with Dr. Meyer clinic in 7-10 days. Antibiotic changed to p.o. Augmentin, needs total 10 days of treatment Appointment scheduled with wound clinic (2) Hypothyroidism: -Continue levothyroxine (3) ADAMARIS (obstructive sleep apnea): -CPAP HS (4) Asthma: No acute exacerbation -Continue albuterol inhaler prn DVT Prophylaxis -Low risk, ambulate Follows with Dr Addison for routine care Disposition: Stable to be discharged home today Total Time Total Time Spent Total Time Spent (In Minutes): Approximately 40 minutes Total Time Includes: Examination of the Patient, Discharge Planning and Medication Reconciliation Discharge Plan Discharge Items Patient Disposition: Home - Self-Care Reason For Visit: L GREAT TOE CELLULITIS Discharge Diagnosis: Left great toe cellulitis/infection Discharge Goals: Decrease discomfort, Diagnostic testing and Therapeutic intervention Activity: As commented below Activity Comment: Offloading/Left lower extremity partial weightbearing for at least 1 week Weightbearing: Right partial Non-emergency contact: Primary Care Provider Call non-emergency contact if: you have any medication questions Follow-up/Referrals: Clarence Meyer DO [Surgeon] - (Follow up with Dr. Meyer's clinic in 7-10 days from discharge.) Mark Addison MD [Primary Care Provider] - 01/08/19 2:35 pm Diet: Regular Addtl Provider Instructions: Need to follow-up at wound clinic Orthopedics follow-up with Dr. Meyer IN 1-2 WEEKS , PLEASE CALL OFFICE TO SCHEDULE APPOINTMENT After debridement, the ulcerated areas were dressed with adaptic, gauze, and kerlix wrap. NEED Daily dressing CHANGE: WITH AQUACEL , THEN PLACE ADAPTIC , GAUZE AND KERLIX WRAP FOLLOW UP WITH WOUND CLINIC , MAY NEED FURTHER DEBRIDEMENT IN FUTURE AT THE CLINIC [facility] : Address: [address] [place] [address], [place] [address] FOLLOW UP APPOINTMENT ; Friday01/08/2019 @ 1PM Prescriptions: New amoxicillin-pot clavulanate 875-125 mg Tablet 1 tab PO BIDM 7 Days Qty: 14 RF: 0 Continued acetaminophen 500 mg Tablet 500 mg PO DIRECTED PRN (Reason: Pain) RF: 0 levothyroxine 75 mcg tablet 75 mcg PO QAM RF: 0 fluticasone propionate 50 mcg/actuation [place],Suspension 2 spray INTRANASAL DAILY PRN (Reason: Nasal Congestion) RF: 0 loratadine 10 mg Tablet 10 mg PO DAILY PRN (Reason: nasal congestion) RF: 0 albuterol sulfate 90 mcg/actuation Hfa Aerosol Inhaler 2 puff INHALATION Q6H PRN (Reason: Wheezing) RF: 0 Stand-Alone Forms: My [facility] [employer], Opioid Pain Management, Work/School Release (Inpt) Discharge Orders: Discharge Order (Routine); Ordered 01/04/19 Ordered By: Caitlyn Small Admission Data Admit Date/Time: 12/31/18 21:04 Attending Provider: aCitlyn Small Admit Provider: Landen Dodge Primary Care Provider: Mark Addison Other Providers: Ronald Olmos Service: Medical Other Interventions: Discharge Summary Assessment (RN) Last Done: 01/04/19 11:13 DC Date/Time DO NOT enter until pt leaves facility: 01/04/19 12:09
== END 2019-01-04 12:09 | disposition home or self-care (01) | DRG 603 ==
LOC: ED 17:10 → 3N 21:04